=== PATIENT | female | born 1945 | race Caucasian/White ===

== ENCOUNTER 2020-08-07 12:24 | Outpatient (CLI) | payer MEDICARE, BC ==
[2020-08-07 13:45] LABS: Bilirubin Neg (Negative); Blood, Urine Negative (Negative); Clarity Clear (Clear); Glucose, Urine (Dipstick) Normal (Negative); Ketone, Urine Negative (Negative); Leukocyte Negative (Negative); Nitrite Negative (Negative); Protein, Urine (Dipstick) Negative (Neg-Trace); Specific Gravity, Urine 1.015 (1.002-1.036); Urobilinogen Normal mg/dL (Less than 2)
[2020-08-07 13:58] LABS: Anion Gap 11 mmol/L (10-20); BUN (Urea Nitrogen) 23 mg/dL (9.8-20.1); Calc. Creatinine Clearance 0 mL/min (70-130); Calcium 9.4 mg/dL (7.8-10.44); Carbon Dioxide 30 mmol/L (23-31); Chloride 102 mmol/L (98-107); Glucose 97 mg/dL (83-110); Potassium 4.6 mmol/L (3.5-5.1); Sodium 138 mmol/L (136-145)
[2020-08-07 14:14] LABS: #Eosinphils 0.2 10x3/uL (0.0-0.5); #Monocytes 0.5 10x3/uL (0.0-1.1); %Basophils 0.8 % (0.0-2.0); %Eosinophils 3.5 % (0.0-6.0); %Lymphocytes 43.7 % (18.0-47.0); %Monocytes 10.6 % (0.0-10.0); Mean Corpuscular HGB CONC 33.1 g/dL (32.0-36.0); Mean Corpuscular Hemoglobin 31.7 pg (27.0-33.0); Mean Corpuscular Volume 95.9 fl (81.6-98.3); Mean Platelet Volume 10.5 fl (7.4-10.4); Platelet Count 190 10x3/uL (150-450); RBC Distribution Width 13.4 % (11.5-14.5); Red Blood Cell (RBC) Count 4.41 10x6/uL (3.90-5.03); White Blood Cell (WBC) Count 4.8 10x3/uL (3.5-10.5)
[2020-08-07 14:56] LABS: Bacteria/HPF Rare-Few HPF (None Seen); RBC/HPF 0-3 HPF (0-3); Squamous Epithelial 0-3 HPF (0-3); WBC/HPF 0-3 HPF (0-3)
[2020-08-07 14:59] LABS: Prothrombin Time 10.3 sec (9.5-12.1)
[2020-08-08 13:08] LABS: SARS-CoV-2 PCR by NAA Not Detected (NotDetected)
== END 2020-08-07 12:25 | disposition home or self-care (01) ==
LOC: LABBT 12:24
PROVIDERS: ATTEND Orthopaedic Surgery
DX: Z01.818 Encounter for other preprocedural examination (principal); M17.12 Unilateral primary osteoarthritis, left knee; Z20.822 Contact with and (suspected) exposure to COVID-19
CPT/HCPCS: 80048; 81001; 85025; 85610; 87081; U0003; U0005; 87635; 93005; 93010

== ENCOUNTER 2020-08-12 05:29 | Observation (INO) | payer MEDICARE, BC ==
[2020-08-12] MEDS ORDERED: Sodium Chloride 0.9% 100 ML ONE (06:07)
[2020-08-12] MEDS ORDERED: Clindamycin/D5W 600 mg/50 ml Premix Bag ONE (06:07)
[2020-08-12] MEDS ORDERED: Tranexamic Acid 1,000 MG/10 ML VIAL ONE ×2 (06:07→09:42)
[2020-08-12] MEDS ORDERED: Vancomycin 1 GM/200 ML BAG ONE (06:07)
[2020-08-12] MEDS ORDERED: Midazolam HCl 2 mg/2 ml Vial ONE (06:44)
[2020-08-12] MEDS ORDERED: Fentanyl 100 MCG/2 ML VIAL ONE ×3 (06:44→09:28)
[2020-08-12] MEDS ORDERED: Bupivacaine PF 0.5% 30 ML VIAL ONE (06:45)
[2020-08-12] MEDS ORDERED: Ropivacaine 2% HCl/PF (20 MG/10 ML VIAL) ONE (06:59)
[2020-08-12] MEDS ORDERED: Bupivacaine HCl 0.5%/Epinephrine 1:200,000/PF 30 ml Vial ONE (06:59)
[2020-08-12] MEDS ORDERED: Fentanyl 100 MCG/2 ML VIAL IV PRN (07:04)
[2020-08-12] MEDS ORDERED: Ropivacaine HCl/PF 250 ML in Premix Bag 1 BAG NERVE BLCK SCH (07:15)
[2020-08-12] MEDS ORDERED: HYDROcodone/Acetaminophen 10/325 mg Tablet PO PRN (07:15)
[2020-08-12] MEDS ORDERED: traMADol HCl 50 MG TAB PO PRN ×2 (07:15)
[2020-08-12] MEDS ORDERED: Ondansetron PF 4 MG/2 ML Vial IVP PRN ×2 (07:15→07:22)
[2020-08-12] MEDS ORDERED: Promethazine HCl 25 MG/ML VIAL IM PRN ×3 (07:15→09:18)
[2020-08-12] MEDS ORDERED: Zolpidem Tartrate 5 MG TAB PO PRN ×2 (07:15→07:22)
[2020-08-12] MEDS ORDERED: Famotidine/PF 20 mg/2ml Vial ONE (07:17)
[2020-08-12] MEDS ORDERED: Propofol 500 MG/50 ML VIAL ONE (07:17)
[2020-08-12] MEDS ORDERED: Propofol 1,000 MG/100 ML VIAL IV ONE (07:17)
[2020-08-12] MEDS ORDERED: diphenhydrAMINE 25 MG CAP PO PRN (07:22)
[2020-08-12] MEDS ORDERED: Acetaminophen 325 MG TAB PO PRN (07:22)
[2020-08-12] MEDS ORDERED: Tranexamic Acid 1,000 MG in Sodium Chloride 0.9% 100 ML IVPB SCH (07:30)
[2020-08-12] MEDS ORDERED: Ondansetron PF 4 MG/2 ML Vial ONE (07:30)
[2020-08-12] MEDS ORDERED: ePHEDrine 50 MG/ML VIAL ONE (07:30)
[2020-08-12] MEDS ORDERED: Lidocaine 1% PF 5 ML VIAL ONE (07:30)
[2020-08-12] MEDS ORDERED: PROPOFOL 200 MG/20 ML VIAL ONE (07:30)
[2020-08-12] MEDS ORDERED: PROPOFOL 0 ML ONE (08:22)
[2020-08-12] MEDS ORDERED: Albuterol Sulfate 2.5 mg/3 ml Neb NEB PRN (08:35)
[2020-08-12] MEDS ORDERED: Aspirin 81 mg Enteric Coated Tablet PO SCH (09:00)
[2020-08-12] MEDS ORDERED: Promethazine HCl 25 MG/ML VIAL SLOW IVP PRN (09:18)
[2020-08-12] MEDS ORDERED: PACU-Morphine 4MG/ML VIAL SLOW IVP PRN (09:18)
[2020-08-12 11:30] VITALS: BMI 27.1
[2020-08-12] MEDS: HYDROcodone/Acetaminophen 10/325 mg Tablet PO PRN ×3 (12:58→23:21)
[2020-08-12] MEDS: Clindamycin/D5W 900 MG in Premix Bag 1 BAG IVPB SCH ×2 (12:59→18:17)
[2020-08-12] MEDS: Sodium Chloride 0.9% 1,000 ML IV SCH ×3 (13:11→21:40)
[2020-08-12] MEDS: Ascorbic Acid 500 mg Chewable Tablet PO SCH (13:12)
[2020-08-12] MEDS: Torsemide 10 MG TAB PO SCH (13:12)
[2020-08-12] MEDS: Aspirin 81 mg Enteric Coated Tablet PO SCH ×2 (13:12→21:40)
[2020-08-12] MEDS: Cholecalciferol 1,000 UNITS (25 MCG) TAB PO SCH (13:13)
[2020-08-12] MEDS: Lactinex Tablet PO SCH (13:13)
[2020-08-12] MEDS: Estradiol 1 MG TAB PO SCH (13:13)
[2020-08-12] MEDS: Pregabalin 75 MG CAP PO SCH ×2 (13:14→20:01)
[2020-08-12] MEDS: Montelukast Sodium 10 mg Tablet PO SCH ×2 (13:14→20:15)
[2020-08-12] MEDS: Loratadine 10 MG TAB PO SCH (13:14)
[2020-08-12] MEDS: Ketorolac Tromethamine 30 MG/ML VIAL IVP SCH ×2 (14:15→20:01)
[2020-08-12] MEDS: Mometasone 200 MCG/Formoterol 5 MCG 120 PUFF INHALER INH SCH (18:56)
[2020-08-12] MEDS: Ipratropium Bromide 2.5 ml Neb NEB SCH ×2 (18:57)
[2020-08-12] MEDS: Albuterol Sulfate 2.5 mg/3 ml Neb NEB SCH (18:57)
[2020-08-12] MEDS ORDERED: Vancomycin 1 GM in Premix Bag 1 BAG IVPB SCH (20:00)
[2020-08-12] MEDS: clonazePAM 1 MG TAB PO SCH (20:01)
[2020-08-13 05:30] LABS: Hemoglobin 12.8 g/dL (12.0-16.0); Mean Corpuscular HGB CONC 34.1 g/dL (32.0-36.0); Mean Corpuscular Volume 96.6 fL (78.0-98.0); Mean Platelet Volume 7.9 fL (7.4-10.4); Platelet Count 173 thou/uL (130-400); RBC Distribution Width 12.6 % (11.5-14.5); Red Blood Cell (RBC) Count 3.87 mill/uL (4.20-5.40); White Blood Cell (WBC) Count 6.1 thou/uL (4.8-10.8)
[2020-08-13] MEDS: Ketorolac Tromethamine 30 MG/ML VIAL IVP SCH ×3 (06:19→20:25)
[2020-08-13] MEDS: Levothyroxine Sodium 100 MCG TAB PO SCH (06:19)
[2020-08-13] MEDS: Mometasone 200 MCG/Formoterol 5 MCG 120 PUFF INHALER INH SCH ×2 (07:10→18:43)
[2020-08-13] MEDS: Montelukast Sodium 10 mg Tablet PO SCH (08:30)
[2020-08-13] MEDS: Senokot S 8.6-50 MG TAB PO SCH ×2 (08:31→20:25)
[2020-08-13] MEDS: Cholecalciferol 1,000 UNITS (25 MCG) TAB PO SCH (08:31)
[2020-08-13] MEDS: Potassium Chloride 10 MEQ TAB PO SCH (08:31)
[2020-08-13] MEDS: Pregabalin 75 MG CAP PO SCH ×2 (08:31→20:26)
[2020-08-13] MEDS: Lactinex Tablet PO SCH (08:31)
[2020-08-13] MEDS: Loratadine 10 MG TAB PO SCH (08:32)
[2020-08-13] MEDS: Aspirin 81 mg Enteric Coated Tablet PO SCH ×2 (08:32→20:25)
[2020-08-13] MEDS: Estradiol 1 MG TAB PO SCH (08:32)
[2020-08-13] MEDS: Ferrous Gluconate 324 MG TAB PO SCH ×2 (08:32→18:26)
[2020-08-13] MEDS: Multivitamin W/ Minerals 1 TAB PO SCH (08:34)
[2020-08-13] MEDS: Ascorbic Acid 500 mg Chewable Tablet PO SCH (08:34)
[2020-08-13] MEDS: HYDROcodone/Acetaminophen 10/325 mg Tablet PO PRN ×3 (08:43→21:28)
[2020-08-13] MEDS ORDERED: Colchicine 0.6 MG TAB PO SCH ×2 (09:00→21:00)
[2020-08-13] MEDS: Sodium Chloride 0.9% 1,000 ML IV SCH ×2 (13:43→20:30)
[2020-08-13] MEDS: Albuterol Sulfate 2.5 mg/3 ml Neb NEB SCH (18:40)
[2020-08-13] MEDS: clonazePAM 1 MG TAB PO SCH (20:26)
[2020-08-14] MEDS: HYDROcodone/Acetaminophen 10/325 mg Tablet PO PRN ×2 (02:41→06:32)
[2020-08-14 05:23] LABS: #Eosinphils 0.2 thou/uL (0.0-0.7); #Monocytes 0.6 thou/uL (0.11-0.59); #Neutrophils 4.1 thou/uL (1.40-6.50); %Basophils 0.3 % (0.0-1.0); %Eosinophils 2.8 % (0.0-10.0); %Lymphocytes 16.6 % (21.0-51.0); %Monocytes 10.6 % (0.0-10.0); %Neutrophils 69.7 % (42.0-75.0); Hemoglobin 11.5 g/dL (12.0-16.0); Mean Corpuscular HGB CONC 33.5 g/dL (32.0-36.0); Mean Corpuscular Hemoglobin 32.5 pg (27.0-31.0); Mean Corpuscular Volume 96.9 fL (78.0-98.0); Mean Platelet Volume 7.9 fL (7.4-10.4); Platelet Count 144 thou/uL (130-400); RBC Distribution Width 12.5 % (11.5-14.5); Red Blood Cell (RBC) Count 3.54 mill/uL (4.20-5.40); White Blood Cell (WBC) Count 5.8 thou/uL (4.8-10.8)
[2020-08-14 05:43] LABS: Anion Gap 12 mmol/L (10-20); BUN (Urea Nitrogen) 11 mg/dL (9.8-20.1); Calc. Creatinine Clearance 76 mL/min (70-130); Calcium 7.9 mg/dL (7.8-10.44); Carbon Dioxide 26 mmol/L (23-31); Chloride 103 mmol/L (98-107); Glucose 119 mg/dL (83-110); Sodium 137 mmol/L (136-145)
[2020-08-14] MEDS: Levothyroxine Sodium 100 MCG TAB PO SCH (06:32)
[2020-08-14] MEDS: Ketorolac Tromethamine 30 MG/ML VIAL IVP SCH (06:33)
[2020-08-14] MEDS: Mometasone 200 MCG/Formoterol 5 MCG 120 PUFF INHALER INH SCH (06:54)
[2020-08-14 07:58] VITALS: TEMP 97.7
[2020-08-14] MEDS: Torsemide 10 MG TAB PO SCH (09:11)
[2020-08-14] MEDS: Lactinex Tablet PO SCH (09:12)
[2020-08-14] MEDS: Potassium Chloride 10 MEQ TAB PO SCH (09:12)
[2020-08-14] MEDS: Ascorbic Acid 500 mg Chewable Tablet PO SCH (09:12)
[2020-08-14] MEDS: Ferrous Gluconate 324 MG TAB PO SCH (09:12)
[2020-08-14] MEDS: Aspirin 81 mg Enteric Coated Tablet PO SCH (09:13)
[2020-08-14] MEDS: Estradiol 1 MG TAB PO SCH (09:13)
[2020-08-14] MEDS: Senokot S 8.6-50 MG TAB PO SCH (09:13)
[2020-08-14] MEDS: Multivitamin W/ Minerals 1 TAB PO SCH (09:13)
[2020-08-14] MEDS: Pregabalin 75 MG CAP PO SCH (09:14)
[2020-08-14] MEDS: Cholecalciferol 1,000 UNITS (25 MCG) TAB PO SCH (09:14)
[2020-08-14] MEDS: Loratadine 10 MG TAB PO SCH (09:16)
[2020-08-14] MEDS: Sodium Chloride 0.9% 1,000 ML IV SCH (09:51)
[2020-08-14 11:56] VITALS: BP 120/70
[2020-08-18] MEDS ORDERED: Rosuvastatin 10 MG TAB PO SCH (21:00)
== END 2020-08-14 12:17 | disposition home or self-care (01) ==
LOC: SDC 05:29 → SJJU 07:22 → SDC 08-13 07:47 → SJJU 08-13 07:49
PROVIDERS: ADMIT Orthopaedic Surgery; ATTEND Orthopaedic Surgery
PROC: 0SRD0J9 Replacement of Left Knee Joint with Synthetic Substitute, Cemented, Open Approach (ICD-10-PCS; principal; 2020-08-12)
PROC: 8E0YXBZ Computer Assisted Procedure of Lower Extremity (ICD-10-PCS; 2020-08-12)
DX: M17.12 Unilateral primary osteoarthritis, left knee (principal); J45.909 Unspecified asthma, uncomplicated; I50.30 Unspecified diastolic (congestive) heart failure; G62.9 Polyneuropathy, unspecified; K21.9 Gastro-esophageal reflux disease without esophagitis; E03.9 Hypothyroidism, unspecified; E78.5 Hyperlipidemia, unspecified; G25.81 Restless legs syndrome; G43.709 Chronic migraine without aura, not intractable, without status migrainosus; I25.10 Atherosclerotic heart disease of native coronary artery without angina pectoris; Z88.0 Allergy status to penicillin; Z79.82 Long term (current) use of aspirin; Z79.899 Other long term (current) drug therapy; Z88.2 Allergy status to sulfonamides; Z88.8 Allergy status to other drugs, medicaments and biological substances; Z91.011 Allergy to milk products; Z91.018 Allergy to other foods; Z96.651 Presence of right artificial knee joint
CPT/HCPCS: 20985; 27447; 85027; 94640 ×2; 97110; 97116; 97139; 97530 ×2; 98960; C1713; C1776; 36415; 80048; 96374; 96376; G0378; J1885; J2250; J2405; J2704; J2795; J3010; J3370; J3490; J7611; S0020; S0028